=== PATIENT | male | born 1950 | race Caucasian/White ===

== ENCOUNTER → 2016-09-08 | Outpatient (CLI) | payer OTHER ==
[~2016-09-08] MED LIST: ALBU8.5H3 INH; LISI-167 PO; LISI5TAB7 PO; MECL25TA4 PO; METO50TA82 PO; NICO4GUM3 PO; WARF10TA6 PO
== END | disposition home or self-care (01) ==
LOC: CFH 08:47
PROVIDERS: ATTEND Internal Medicine Cardiovascular Disease
DX: I08.3 Combined rheumatic disorders of mitral, aortic and tricuspid valves (principal); I48.91 Unspecified atrial fibrillation; I77.810 Thoracic aortic ectasia; I51.7 Cardiomegaly
CPT/HCPCS: 93306

== ENCOUNTER → 2017-09-18 | Outpatient (CLI) | payer OTHER ==
[~2017-09-18] MED LIST changes: -ALBU8.5H3 INH; +ALBU8.5H8 INH; -NICO4GUM3 PO; +NICO4GUM40 PO; +WARF10TA43 PO; -WARF10TA6 PO
== END | disposition home or self-care (01) ==
LOC: CVU 09:51
PROVIDERS: ATTEND Internal Medicine Cardiovascular Disease
DX: I65.22 Occlusion and stenosis of left carotid artery (principal); I71.2 Thoracic aortic aneurysm, without rupture; I10 Essential (primary) hypertension; I48.91 Unspecified atrial fibrillation
CPT/HCPCS: 93306; 93880